=== PATIENT | male | born 1950 | race Hispanic/Latino ===

== ENCOUNTER → 2017-07-22 | Day surgery (SDC) | payer MEDICARE ==
[2017-07-19 16:09] LABS: BASOPHILS % 0.3 % (0.0-1.0); EOSINOPHILS % 0.3 % (0.0-6.0); HEMATOCRIT 37.8 % (38.2-49.6); HEMOGLOBIN 13.3 g/dL (14.0-18.0); LYMPHOCYTES # (AUTO) 1.6 (1.0-3.2); LYMPHOCYTES % 20.3 % (18.0-39.1); MEAN CORPUSCULAR HEMOGLOBIN 31.4 pg (28-32); MEAN CORPUSCULAR HGB CONC 35.2 g/dL (31-35); MEAN CORPUSCULAR VOLUME 89.4 fL (81-99); MONOCYTES # (AUTO) 0.6 (0.2-0.8); NEUTROPHILS # (AUTO) 5.6 (2.1-6.9); NEUTROPHILS % 70.6 % (38.7-80.0); PLATELET COUNT 193 x10e3/uL (140-360); RED BLOOD COUNT 4.23 x10e6/uL (4.3-5.7); RED CELL DISTRIBUTION WIDTH 12.6 % (11.7-14.4)
[~2017-07-22] MED LIST: AMOXICILLIN250 MG PO; CAPTOPRIL12.5 MG PO; CEFDINIR300 MG PO; COUMADIN2.5 MG PO; DIGOXIN250 MCG PO; EPHEDRINE SULFATE INJ 50 MG/10 ML SYR ONE; FENTANYL CITRATE/PF 100MCG/2 ML INJ ONE; FUROSEMIDE20 MG PO; HYOSCYAMINE SULFATE 0.5 MG/ML AMP ONE; KLOR-CON M2020 MEQ PO; LIDOCAINE HCL 2% LOCAL INJ 5 ML SDV VIAL INJ ONE; LOVAZA1 GM PO; MIDAZOLAM HCL 2 MG/2 ML VIAL ONE; PACERONE200 MG PO; PROPOFOL IV EMULSION 10 MG/ML 50 ML VIAL ONE; SIMVASTATIN20 MG PO; ZEBETA10 M1 PO; ZETIA10 MG PO
--- NOTE | 2017-07-22 13:20 | Operative Report ---
DATE OF PROCEDURE: July 22, 2017 REFERRING PHYSICIAN: Dr. Piter Hollingsworth. PROCEDURE PERFORMED: Colonoscopy and polypectomy. INDICATIONS FOR COLONOSCOPY: Colorectal cancer screening. Personal history of colon polyps. MEDICATIONS: Patient was done under MAC. Please see anesthesiologist's note. PROCEDURE: With patient in lateral decubitus position, the flexible fiberoptic Olympus colonoscope was inserted into the rectum with ease and advanced all the way to the cecum. It was then withdrawn slowly. Mucosa overlying the cecum, ascending, and the transverse colon appeared to be within normal limits. One polyp was snared and one polyp was hot biopsied from the descending colon. Diverticular disease was noted to involve the sigmoid colon. Eight polyps were hot biopsied from the sigmoid colon. Two polyps were hot biopsied from the rectum. The scope was then retroflexed into the distal rectum and small internal hemorrhoids were noted, none of which is actively bleeding. The scope was then straightened out. The scope was subsequently withdrawn. Patient tolerated the procedure well. IMPRESSION 1. Descending colon polyps times 2, one snared and one hot biopsied. 2. Diverticulosis. 3. Sigmoid colon polyps times 8, hot biopsied. 4. Rectal polyps times 2, hot biopsied. 5. Internal hemorrhoids, none actively bleeding. PLAN: Followup histology. Initiate high-fiber low-fat diet. Initiate high-fiber supplement. Patient will need a followup colonoscopy in 3 years. Job#: [id number] PAT cc:Dr. Piter Hollingsworth
== END | disposition home or self-care (01) ==
LOC: OR 09:30
PROVIDERS: ATTEND Internal Medicine Gastroenterology
DX: Z12.11 Encounter for screening for malignant neoplasm of colon (principal); D12.4 Benign neoplasm of descending colon; K62.1 Rectal polyp; K57.30 Diverticulosis of large intestine without perforation or abscess without bleeding; K64.8 Other hemorrhoids; G47.33 Obstructive sleep apnea (adult) (pediatric); I10 Essential (primary) hypertension; I48.91 Unspecified atrial fibrillation; I11.0 Hypertensive heart disease with heart failure; I50.9 Heart failure, unspecified; Z01.810 Encounter for preprocedural cardiovascular examination; Z01.812 Encounter for preprocedural laboratory examination; Z79.01 Long term (current) use of anticoagulants; Z95.810 Presence of automatic (implantable) cardiac defibrillator; Z85.51 Personal history of malignant neoplasm of bladder
CPT/HCPCS: 36415; 45384; 45385; 85025; 93005; J1980; J2001; J2250

== ENCOUNTER 2017-10-02 22:33 | Inpatient (IN) | payer MEDICARE ==
[~2017-10-02] VITALS: Ht 170.2 cm; Wt 86.2 kg
[~2017-10-02 22:33] MED LIST changes: -EPHEDRINE SULFATE INJ 50 MG/10 ML SYR ONE; -FENTANYL CITRATE/PF 100MCG/2 ML INJ ONE; -HYOSCYAMINE SULFATE 0.5 MG/ML AMP ONE; -LIDOCAINE HCL 2% LOCAL INJ 5 ML SDV VIAL INJ ONE; -MIDAZOLAM HCL 2 MG/2 ML VIAL ONE; -PROPOFOL IV EMULSION 10 MG/ML 50 ML VIAL ONE
[2017-10-02] MEDS ORDERED: IBUPROFEN 600 MG TAB PO STA (23:20)
[2017-10-02] MEDS ORDERED: CEFTRIAXONE SOD 1 GM VIAL IV ONE (23:30)
[2017-10-02] MEDS ORDERED: SODIUM CHLORIDE 0.9% 1000ML 1,000 ML IV ONE (23:30)
[2017-10-02 23:47] LABS: BASOPHILS % 0.1 % (0.0-1.0); HEMATOCRIT 36.1 % (38.2-49.6); HEMOGLOBIN 12.7 g/dL (14.0-18.0); LYMPHOCYTES # (AUTO) 0.9 (1.0-3.2); LYMPHOCYTES % 5.9 % (18.0-39.1); MEAN CORPUSCULAR HEMOGLOBIN 30.9 pg (28-32); MEAN CORPUSCULAR HGB CONC 35.2 g/dL (31-35); MEAN CORPUSCULAR VOLUME 87.8 fL (81-99); MONOCYTES # (AUTO) 1.8 (0.2-0.8); NEUTROPHILS # (AUTO) 13.2 (2.1-6.9); NEUTROPHILS % 82.5 % (38.7-80.0); PLATELET COUNT 185 x10e3/uL (140-360); RED BLOOD COUNT 4.11 x10e6/uL (4.3-5.7); RED CELL DISTRIBUTION WIDTH 13.2 % (11.7-14.4)
[2017-10-03] VITALS (8 sets, daily range): BP systolic 93–141; BP diastolic 55–82
[2017-10-03 00:01] LABS: CLARITY,URINE CLOUDY (CLEAR); COLOR,URINE YELLOW (YELLOW)
[2017-10-03 00:02] LABS: BILIRUBIN,URINE NEGATIVE (NEGATIVE); KETONES,URINE NEGATIVE (NEGATIVE); LEUKOCYTE ESTERASE ,URINE 1+ (NEGATIVE); NITRITE,URINE POSITIVE (NEGATIVE); PROTEIN,URINE DIPSTICK 1+ (NEGATIVE); URINE UROBILINOGEN 0.2 mg/dL (0.2 - 1)
[2017-10-03 00:07] LABS: ALANINE AMINOTRANSFERASE 163 IU/L (0-55); ALBUMIN 3.4 g/dL (3.5-5.0); ALKALINE PHOSPHATASE 72 IU/L (40-150); ANION GAP 12.8 mmol/L (8-16); BLOOD UREA NITROGEN 20 mg/dL (7-26); BUN/CREATININE RATIO 20 (6-25); CALCIUM 8.4 mg/dL (8.4-10.2); CARBON DIOXIDE 24 mmol/L (22-29); CHLORIDE 103 mmol/L (98-107); CREATINE KINASE 140 IU/L (30-200); CREATININE, SERUM 0.98 mg/dL (0.72-1.25); EST GLOMERULAR FILTRATION RATE > 60 ML/MIN (60-); GLUCOSE 99 mg/dL (74-118); POTASSIUM 3.8 mmol/L (3.5-5.1); SODIUM 136 mmol/L (136-145)
[2017-10-03 00:20] LABS: WBC,URINE (MAN) >50 /HPF (0-5)
[2017-10-03 00:21] LABS: BACTERIA,URINE MANY /HPF; EPITHELIAL CELLS,URINE RARE /LPF
--- NOTE | 2017-10-03 00:29 | Diagnostic Imaging Report ---
EXAMINATION: CHEST SINGLE (PORTABLE) INDICATION: Fever. COMPARISON: None FINDINGS: TUBES and LINES: AICD is intact. LUNGS: Lungs are not well inflated. Lungs are clear. There is mild prominence of the central pulmonary vasculature, consistent with pulmonary venous congestion. PLEURA: No pleural effusion or pneumothorax. HEART AND MEDIASTINUM: The cardiomediastinal silhouette is unremarkable. There are atherosclerotic calcifications within the aorta. BONES AND SOFT TISSUES: No acute osseous lesion. Soft tissues are unremarkable. UPPER ABDOMEN: No free air under the diaphragm. IMPRESSION: 1. No acute thoracic abnormality. 2. Central vascular congestion. Signed by: Dr. William Robbins M.D. on 10/03/2017 12:26 AM
[2017-10-03 01:09] LABS: LYMPHOCYTES % (MANUAL) 7 % (19-48); MONOCYTES % (MANUAL) 11 % (3.4-9.0); NEUTROPHILS % (MANUAL) 82 % (40-74); PLATELET ESTIMATE ADEQUATE; PLATELET MORPHOLOGY COMMENT NORMAL; RBC MORPHOLOGY COMMENT NORMAL
[2017-10-03] MEDS ORDERED: SODIUM CHLORIDE 0.9% 1000ML 1,000 ML IV SCH (01:15)
[2017-10-03] MEDS ORDERED: ACETAMINOPHEN 325 MG TAB PO PRN (01:15)
[2017-10-03] MEDS ORDERED: ONDANSETRON HCL 4 MG ORAL DISINTEGRATING TAB PO PRN (01:15)
--- OUTSIDE RECORDS SUMMARY | 2017-10-03 01:24 | XMS REPORT ---
Author [facility] Address Unknown Phone Unavailable Care Team Providers Care Sales Representative Printing Paper Name Role Phone TERE WHEELER Unavailable Unavailable Problems This patient has no known problems. Allergies, Adverse Reactions, Alerts This patient has no known allergies or adverse reactions. Medications This patient has no known medications. Results Test Description Test Time Test Comments Text Results Atomic Results Result Comments CHEST SINGLE (PORTABLE) [place] [address] Patient Name: ROXIE BURKETT MR #: [id number] : 1950 Age/Sex: 67/M Req #: [id number] Adm Physician: Ordered by: TERE WHEELER MD Report #: [id number] Location: ER Room/Bed: ___ Procedure: [id number] DX/CHEST SINGLE (PORTABLE) Exam Date: 10/03/17 Exam Time: 2337 REPORT STATUS: Signed EXAMINATION: CHEST SINGLE (PORTABLE) INDICATION: Fever. COMPARISON: None FINDINGS: TUBES and LINES: AICD is intact. LUNGS: Lungs are not well inflated. Lungs are clear. There is mild prominence of the central pulmonary vasculature, consistent with pulmonary venous congestion. PLEURA: No pleural effusion or pneumothorax. HEART AND MEDIASTINUM: The cardiomediastinal silhouette is unremarkable. There are atherosclerotic calcifications within the aorta. BONES AND SOFT TISSUES: No acute osseous lesion. Soft tissues are unremarkable. UPPER ABDOMEN: No free air under the diaphragm. IMPRESSION: 1. No acute thoracic abnormality. 2. Central vascular congestion. Signed by: Dr. William Robbins M.D. on 10/03/2017 12:26 AM Dictated By: WILLIAM ACHARYA MD Transcribed By: ALEXUS on 10/03/1725 COPY TO: TERE WHEELER MD
[2017-10-03] MEDS ORDERED: WARFARIN SODIU2.5 MG PO (04:18)
[2017-10-03] MEDS ORDERED: SIMVASTATIN40 MG PO (04:18)
[2017-10-03 12:01] LABS: INR 1.48; PROTHROMBIN TIME 16.8 seconds (11.9-14.5)
--- NOTE | 2017-10-03 12:33 | Diagnostic Imaging Report ---
PROCEDURE: A single AP view of the chest. COMPARISON: 10/02/2017 at 2337 INDICATIONS: BRONCHITIS, FEVER, UTI FINDINGS: Lines/tubes: Left chest wall pacemaker/AICD with leads in unchanged positions. Lungs: No evidence of infection. Mild pulmonary vascular congestion, unchanged Patchy opacities in the right lung base are stable and likely represent atelectasis. Pleura: There is no pleural effusion or pneumothorax. Heart and mediastinum: The heart and the mediastinum are unremarkable. Bones: No acute bony abnormality. IMPRESSION: Pulmonary vascular congestion and right basilar atelectasis, unchanged. Dictated by: Harjit Cifuentes M.D. on 10/03/2017 at 12:34 Electronically approved by: Harjit Cifuentes M.D. on 10/03/2017 at 12:34
[2017-10-03] MEDS: PIPER-TAZ 3.375 GM 100 ML IV SCH ×2 (13:28→20:19)
[2017-10-03] MEDS ORDERED: PIPER-TAZ 3.375 GM / NS 50ML IV SCH (14:00)
[2017-10-03] MEDS: WARFARIN SOD 5 MG TAB PO SCH (17:06)
[2017-10-03] MEDS ORDERED: CEFTRIAXONE SOD 1 GM VIAL IV SCH (23:00)
[2017-10-04] VITALS (8 sets, daily range): BP systolic 95–131; BP diastolic 52–60
[2017-10-04] MEDS: PIPER-TAZ 3.375 GM 100 ML IV SCH ×3 (03:57→20:00)
[2017-10-04 07:09] LABS: BASOPHILS % 0.1 % (0.0-1.0); EOSINOPHILS % 0.1 % (0.0-6.0); HEMATOCRIT 33.7 % (38.2-49.6); HEMOGLOBIN 11.7 g/dL (14.0-18.0); LYMPHOCYTES # (AUTO) 1.2 (1.0-3.2); LYMPHOCYTES % 8.4 % (18.0-39.1); MEAN CORPUSCULAR HGB CONC 34.7 g/dL (31-35); MEAN CORPUSCULAR VOLUME 89.2 fL (81-99); MONOCYTES # (AUTO) 1.4 (0.2-0.8); MONOCYTES % 10.1 % (4.4-11.3); NEUTROPHILS % 80.6 % (38.7-80.0); PLATELET COUNT 151 x10e3/uL (140-360); RED BLOOD COUNT 3.78 x10e6/uL (4.3-5.7); RED CELL DISTRIBUTION WIDTH 13.4 % (11.7-14.4)
[2017-10-04 07:34] LABS: INR 1.66; PROTHROMBIN TIME 18.4 seconds (11.9-14.5)
[2017-10-04 08:02] LABS: ALANINE AMINOTRANSFERASE 204 IU/L (0-55); ALBUMIN 2.7 g/dL (3.5-5.0); ALBUMIN/GLOBULIN RATIO 0.9 (0.8-2.0); ALKALINE PHOSPHATASE 64 IU/L (40-150); ANION GAP 10.8 mmol/L (8-16); BLOOD UREA NITROGEN 16 mg/dL (7-26); BUN/CREATININE RATIO 19 (6-25); CALCIUM 8.1 mg/dL (8.4-10.2); CARBON DIOXIDE 25 mmol/L (22-29); CHLORIDE 106 mmol/L (98-107); CREATININE, SERUM 0.86 mg/dL (0.72-1.25); EST GLOMERULAR FILTRATION RATE > 60 ML/MIN (60-); GLUCOSE 102 mg/dL (74-118); POTASSIUM 3.8 mmol/L (3.5-5.1); SODIUM 138 mmol/L (136-145)
[2017-10-04] MEDS: WARFARIN SOD 5 MG TAB PO SCH (16:58)
[2017-10-04] MEDS: BISOPROLOL FUMARATE 10 MG TAB PO SCH (16:58)
[2017-10-04] MEDS: SIMVASTATIN 40 MG TAB PO SCH (21:00)
[2017-10-05] VITALS (8 sets, daily range): BP systolic 98–127; BP diastolic 56–66
[2017-10-05] MEDS: PIPER-TAZ 3.375 GM 100 ML IV SCH (04:00)
[2017-10-05] MEDS ORDERED: DIGOXIN 0.25 MG TAB PO SCH (06:00)
[2017-10-05] MEDS ORDERED: AMIODARONE HCL 200 MG TAB PO SCH (06:00)
[2017-10-05] MEDS ORDERED: FUROSEMIDE 20 MG TAB PO SCH (06:00)
[2017-10-05] MEDS ORDERED: MEROPENEM 500MG 500 MG in SODIUM CHLORIDE 0.9% 50ML 50 ML IV SCH (08:00)
[2017-10-05 08:41] LABS: BASOPHILS % 0.2 % (0.0-1.0); EOSINOPHILS # (AUTO) 0.1 (0.0-0.4); EOSINOPHILS % 0.6 % (0.0-6.0); HEMATOCRIT 35.6 % (38.2-49.6); HEMOGLOBIN 12.4 g/dL (14.0-18.0); LYMPHOCYTES # (AUTO) 0.8 (1.0-3.2); LYMPHOCYTES % 9.6 % (18.0-39.1); MEAN CORPUSCULAR HEMOGLOBIN 31.2 pg (28-32); MEAN CORPUSCULAR HGB CONC 34.8 g/dL (31-35); MEAN CORPUSCULAR VOLUME 89.4 fL (81-99); MONOCYTES # (AUTO) 0.8 (0.2-0.8); MONOCYTES % 9.6 % (4.4-11.3); NEUTROPHILS # (AUTO) 6.4 (2.1-6.9); NEUTROPHILS % 79.1 % (38.7-80.0); PLATELET COUNT 178 x10e3/uL (140-360); RED BLOOD COUNT 3.98 x10e6/uL (4.3-5.7); RED CELL DISTRIBUTION WIDTH 13.6 % (11.7-14.4)
[2017-10-05] MEDS ORDERED: MEROPENEM 500 MG VIAL IV SCH (09:00)
[2017-10-05 09:35] LABS: CLARITY,URINE CLOUDY (CLEAR); COLOR,URINE YELLOW (YELLOW); LEUKOCYTE ESTERASE ,URINE 1+ (NEGATIVE); NITRITE,URINE NEGATIVE (NEGATIVE); PROTEIN,URINE DIPSTICK 2+ (NEGATIVE)
[2017-10-05 09:36] LABS: KETONES,URINE TRACE (NEGATIVE); URINE UROBILINOGEN 0.2 mg/dL (0.2 - 1)
[2017-10-05 09:37] LABS: BILIRUBIN,URINE 1+ (NEGATIVE)
[2017-10-05 09:39] LABS: INR 1.58; PROTHROMBIN TIME 17.7 seconds (11.9-14.5)
[2017-10-05 09:48] LABS: BACTERIA,URINE MANY /HPF; EPITHELIAL CELLS,URINE FEW /LPF; RBC,URINE 21-50 /HPF (0-5); WBC,URINE (MAN) 21-50 /HPF (0-5)
[2017-10-05] MEDS: BISOPROLOL FUMARATE 10 MG TAB PO SCH ×2 (09:59→16:28)
[2017-10-05] MEDS: DIGOXIN 0.25 MG TAB PO SCH (09:59)
[2017-10-05] MEDS: POTASSIUM CHLORIDE 20 MEQ TAB CR PO SCH (09:59)
[2017-10-05] MEDS: AMIODARONE HCL 200 MG TAB PO SCH (09:59)
[2017-10-05] MEDS: EZETIMIBE 10 MG TAB PO SCH (09:59)
[2017-10-05] MEDS: FUROSEMIDE 20 MG TAB PO SCH (09:59)
[2017-10-05] MEDS: MEROPENEM 500 MG VIAL IV SCH ×3 (10:00→22:00)
[2017-10-05] MEDS: WARFARIN SOD 5 MG TAB PO SCH (16:37)
[2017-10-05] MEDS: SIMVASTATIN 40 MG TAB PO SCH (21:00)
[2017-10-06] VITALS: BP 112/56
[2017-10-06] MEDS: MEROPENEM 500 MG VIAL IV SCH ×3 (03:58→17:06)
[2017-10-06 04:00] VITALS: BP 132/60
[2017-10-06 07:20] VITALS: BP 130/63
[2017-10-06 07:43] LABS: INR 1.8; PROTHROMBIN TIME 19.6 seconds (11.9-14.5)
[2017-10-06 08:10] VITALS: BP 130/63
[2017-10-06] MEDS: AMIODARONE HCL 200 MG TAB PO SCH (09:25)
[2017-10-06] MEDS: DIGOXIN 0.25 MG TAB PO SCH (09:26)
[2017-10-06] MEDS: FUROSEMIDE 20 MG TAB PO SCH (09:26)
[2017-10-06] MEDS: POTASSIUM CHLORIDE 20 MEQ TAB CR PO SCH (09:26)
[2017-10-06] MEDS: BISOPROLOL FUMARATE 10 MG TAB PO SCH ×2 (09:26→17:00)
[2017-10-06] MEDS: EZETIMIBE 10 MG TAB PO SCH (09:26)
[2017-10-06 11:30] VITALS: BP 106/55
[2017-10-06 15:23] VITALS: BP 106/55
--- NOTE | 2017-10-06 15:59 | Discharge Summary ---
PRIMARY CARE DOCTOR: Dr. Dilip Owen FINAL DIAGNOSIS: Extended spectrum beta-lactamase Escherichia coli urinary tract infection. SECONDARY DIAGNOSES 1. Bronchitis, resolved. 2. Atrial fibrillation, status post permanent pacemaker, on Coumadin. CONSULTANTS: None. PROCEDURES/STUDIES PERFORMED: None. HISTORY: Per [facility] HOSPITAL COURSE: The patient was admitted given the fact that he just had cystoscopy last week at [facility]. I started him on Zosyn for his UTI. Per the patient and his , his bladder cancer is still in remission. Subsequently, urine culture came back as ESBL E. coli. However, it is sensitive to Zosyn and ciprofloxacin. His Zosyn was switched to meropenem. His UA was repeated. He still has pyuria. However, it is a little better. Clinically, the patient is doing very well. His white count initially was 16, and now is down to 8. On admission, he had a temperature of 100.5. Since then, he had been afebrile. The patient feels good. I will go ahead and discharge him home on Cipro times 2 weeks given recent instrumentation. I have notified his primary care doctor of this admission, and also asked him to repeat a UA in 2 weeks to ensure that his UTI has completely resolved. The patient was seen and examined today. It took 32 minutes total to discharge this patient. CONDITION ON DISCHARGE: Improved. DISCHARGE MEDICATIONS: Please see medication reconciliation form. JUAN RAMON JIMENES M.D. Job#: [id number] RI cc:DILIP OWEN MD
[2017-10-06] MEDS: WARFARIN SOD 5 MG TAB PO SCH (17:06)
[2017-10-06] MEDS ORDERED: CIPRO500 MG PO (17:09)
== END 2017-10-06 17:41 | disposition home or self-care (01) | DRG 699 ==
LOC: ER 22:33 → ERHOLD 10-03 01:21 → MED/SURG3 10-03 03:12
PROVIDERS: ADMIT Internal Medicine; ATTEND Internal Medicine
CPT/HCPCS: 36415; 71045; 80053; 80162; 81001; 82550; 82553; 83605; 84484; 85025; 85610; 87040; 87086; 87186; 87400; 93005; 99284; J0696; J2185; J2543; J7030